=== PATIENT | male | born 1995 | race Caucasian/White ===

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

== ENCOUNTER 2017-01-20 14:50 | Emergency (ER) | payer OTHER ==
[~2017-01-20] VITALS: Ht 188 cm; Wt 113.5 kg
[~2017-01-20 14:50] MED LIST changes: +CEPH-460 PO
[2017-01-20 14:52] VITALS: BP 147/79; PULSE 86; RESP 18; TEMP 98.7; O2SAT 96
[2017-01-20] MEDS ORDERED: METHOCARBAMOL 500 MG TAB PO ONE (16:45)
[2017-01-20] MEDS ORDERED: IBUPROFEN 800 MG TAB PO ONE (16:45)
[2017-01-20] MEDS ORDERED: IBUP1TAB7 PO (16:47)
[2017-01-20] MEDS ORDERED: ROBA500T PO (16:47)
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
== END 2017-01-20 17:26 | disposition home or self-care (01) ==
LOC: NEPK 14:50
DX: S16.1XXA Strain of muscle, fascia and tendon at neck level, initial encounter (principal); S46.811A Strain of other muscles, fascia and tendons at shoulder and upper arm level, right arm, initial encounter; M54.6 Pain in thoracic spine; R51 Headache; Z87.09 Personal history of other diseases of the respiratory system; V89.2XXA Person injured in unspecified motor-vehicle accident, traffic, initial encounter
CPT/HCPCS: 99283